=== PATIENT | female | born 1980 | race Hispanic/Latino ===

== ENCOUNTER → 2019-01-27 | Day surgery (SDC) | payer OTHER ==
--- NOTE | 2019-01-27 13:02 | RAD REPORT ---
EXAM DESCRIPTION: US - Breast Core BX w/US Guidance - 01/27/2019 10:59 am CLINICAL HISTORY: ICD R 92.8 COMPARISON: January 15 2019 ultrasound TECHNIQUE: The risks, benefits alternatives to the procedure were explained to the patient and infor med consent obtained. Skin, subcutaneous tissues and breast tissue anesthetized with lidocaine. Under sonographic guidance, an 18 gauge needle was placed into the 6 millimeter mass within the inner left breast. Aspiration was attempted. However, no fluid was removed. Subsequently, Three 14 gauge vacuum assisted core biopsies of the mass obtained. 2 centimeter specime ns taken. Materials given to pathology. Subsequently a localizing clip was placed adjacent to the mass Patient experienced no immediate complication IMPRESSION: Vacuum assisted core biopsies of the left breast mass
== END ==
LOC: DS 09:26
DX: N63.20 Unspecified lump in the left breast, unspecified quadrant (principal)
CPT/HCPCS: 19083; 88305